=== PATIENT | male | born 1970 | race Caucasian/White ===

== ENCOUNTER 2017-07-19 16:08 | Emergency (ER) | payer OTHER ==
[~2017-07-19] VITALS: Ht 188 cm; Wt 93.4 kg
[2017-07-19] MEDS ORDERED: ALBU0.63 NEB (16:35)
[2017-07-19] MEDS ORDERED: FLUT1DIS27 INH (16:35)
[2017-07-19] MEDS ORDERED: LANS30CA54 PO (16:35)
[2017-07-19] MEDS ORDERED: ALBUTEROL SULFATE 2.5 MG/3 ML NEBU NEB ONE ×3 (16:45→18:30)
[2017-07-19] MEDS ORDERED: ALBUTEROL SULFATE 2.5 MG/3 ML NEBU ONE ×3 (17:06→18:48)
[2017-07-19] MEDS ORDERED: predniSONE 20 MG TABLET PO ONE (17:30)
[2017-07-19] MEDS ORDERED: predniSONE 20 MG TABLET ONE (17:41)
--- NOTE | 2017-07-19 19:10 | NUR ---
Patient discharged to home in stable conditon. Written and verbal after care instructions given. Patient verbalizes understanding of instructions.pt walks in steady gait. pt says feels better. breathing normally.
--- NOTE | 2017-07-19 19:10 | NUR ---
Resp neb tx stopped per pt request at this time and subsequently D/C'd. No resp. distress noted. Pt was tolerated well.
[2017-07-19 19:11] VITALS: BP 119/71
== END 2017-07-19 19:13 | disposition home or self-care (01) ==
LOC: ER 16:08
DX: J44.0 Chronic obstructive pulmonary disease with (acute) lower respiratory infection (principal); J20.8 Acute bronchitis due to other specified organisms; B96.89 Other specified bacterial agents as the cause of diseases classified elsewhere
CPT/HCPCS: 71045; 87400; A4663; J7512